=== PATIENT | male | born 1995 ===

== ENCOUNTER → 2021-07-04 | Outpatient (CLI) | payer OTHER ==
--- NOTE | 2021-07-04 16:05 | Diagnostic Imaging Report ---
EXAMINATION: CT abdomen and pelvis without contrast. TECHNIQUE: Multiple contiguous axial images were obtained through the abdomen and pelvis without the use of intravenous contrast. All CT scans use one or more of the following dose optimizing techniques: automated exposure control, MA and/or KvP adjustment based on patient size and exam type or iterative reconstruction. HISTORY: HEMATURIA COMPARISON: None available. FINDINGS: Lung bases: The lung bases are clear. Solid organs: The liver is normal. The gallbladder is normal. There is no biliary ductal dilation. Pancreas is normal. Spleen is normal. Adrenal glands are normal. The kidneys are normal without visualized calculus or hydronephrosis. Bowel: The stomach and small bowel are normal without obstruction. The colon and appendix are normal. Peritoneum: There is no intraperitoneal free fluid or free air. No suspicious lymphadenopathy. Vasculature: Normal without aneurysm. Musculoskeletal: No suspicious osseous lesion or compression fracture. Pelvis: The prostate gland is normal. The urinary bladder is normal. IMPRESSION: 1. No visualized renal calculus or hydronephrosis. 2. No other acute abnormality within the abdomen or pelvis. Dictated by: Dictated on workstation # [id number]
== END ==
LOC: RAD 15:19
PROVIDERS: ATTEND Nurse Practitioner Family
DX: R31.9 Hematuria, unspecified (principal)
CPT/HCPCS: 74176